=== PATIENT | female | born 1975 | race Caucasian/White ===

== ENCOUNTER 2017-11-07 22:55 | Emergency (ER) | payer MEDICARE, OTHER ==
[2017-11-07 23:32] LABS: Appearance,Urine Clear (Clear); Bilirubin,Urine Negative (Negative); Blood,Urine Negative (Negative); Color,Urine Light Yellow; Glucose,Urine (UA) Negative (Negative); Ketones,Urine Negative (Negative); Leukocyte Esterase,Urine Negative (Negative); Nitrite,Urine Negative (Negative); PH, Urine 5.5 (5.0-8.0); Protein,Urine Negative (Negative); Specific Gravity,Urine 1.026 (1.001-1.035); Urobilinogen,Urine <2.0 mg/dL (<2.0)
[2017-11-07 23:34] LABS: Basophils % (A) 0 %; Eosinophils # (A) 0.1 k/uL (0-0.7); Eosinophils % (A) 1 %; HGB 13.3 gm/dL (11.4-16.0); Lymphocytes # (A) 1.6 k/uL (1.0-4.8); Lymphocytes % (A) 17 %; MCH 27.6 pg (25.0-35.0); MCV 78.8 fL (80.0-100.0); Mean Platelet Volume 7.2; Monocytes # (A) 0.4 k/uL (0-1.0); Monocytes % (A) 5 %; Neutrophils # (A) 6.9 k/uL (1.3-7.7); Neutrophils % (A) 76 %; Platelet Count 265 k/uL (150-450); RBC 4.83 m/uL (3.80-5.40); RDW 14.4 % (11.5-15.5); WBC 9.1 k/uL (3.8-10.6)
[2017-11-07 23:42] LABS: Amphetamine Screen,Urine Not Detected (NotDetected); Barbiturate Screen,Urine Not Detected (NotDetected); Benzodiazepines Screen,Urine Not Detected (NotDetected); Cocaine Screen,Urine Not Detected (NotDetected); Methadone Screen, Urine Not Detected (NotDetected); Opiate Screen,Urine Not Detected (NotDetected); Oxycodone Screen, Urine Not Detected (NotDetected); Phencyclidine Screen,Urine Not Detected (NotDetected); Tricyclic Antidepressant,Urine Not Detected (NotDetected); Urn Cannabinoid Scrn Not Detected (NotDetected)
[2017-11-07 23:44] LABS: Anion Gap 11 mmol/L; Blood Urea Nitrogen 4 mg/dL (7-17); Calcium 9.4 mg/dL (8.4-10.2); Carbon Dioxide 28 mmol/L (22-30); Chloride 101 mmol/L (98-107); Glucose 108 mg/dL (74-99); Potassium 3.8 mmol/L (3.5-5.1); Sodium 140 mmol/L (137-145)
--- NOTE | 2017-11-08 00:10 | ED ---
General Adult HPI - General Source: patient, EMS Mode of arrival: EMS Limitations: no limitations - History of Present Illness -: unknown Location: abdomen Radiation: non-radiation Consistency: constant Improves with: none Worsens with: none Associated Symptoms: denies other symptoms <Finn Bustamante - Last Filed: 11/08/17 00:07> <Dhaval Carvalho - Last Filed: 11/08/17 02:35> - General Chief complaint: Anxiety Stated complaint: Altered Mental Status Time Seen by Provider: 11/07/17 23:02 - History of Present Illness Initial comments: This patient is a 42-year-old woman who reportedly has history of schizophrenia , and presents in the company of her sisters. The patient reports that she is having a little bit of lower abdominal pain. The patient sisters however state that she is here because she has been having some suicidal ideation. In relation to the abdominal pain complaint, the patient is not able to characterize it well. She indicates the lower abdomen. She states that the pain has been there "a long time" but is not able to state whether it is been weeks or months. She is not able to give a good description of the pain. She has not discovered any worsening or relieving factors. She is not able to relate any accompanying symptoms, denying changes in urination or bowel movement. (Finn Bustamante) - Related Data Home Medications Medication Instructions Recorded Confirmed ARIPiprazole [Abilify] 20 mg PO DAILY 06/09/15 06/09/15 Albuterol Inhaler [Ventolin 1 - 2 puff INHALATION Q6HR PRN 06/09/15 06/09/15 Inhaler] Doxepin HCl [SINEquan] 75 mg PO HS 06/09/15 06/09/15 Lisinopril [Prinivil] 10 mg PO DAILY 06/09/15 06/09/15 Meclizine [Antivert] 25 mg PO QID 06/09/15 06/09/15 Metoprolol Tartrate 25 mg PO HS 06/09/15 06/09/15 lamoTRIgine [lamoTRIgine ER] 25 mg PO DAILY 06/09/15 06/09/15 Previous Rx's Medication Instructions Recorded ALPRAZolam [Xanax] 0.5 mg PO HS PRN #5 tab 06/09/15 Allergies Allergy/AdvReac Type Severity Reaction Status Date / Time ziprasidone HCl [From Geodon] Allergy Unknown Verified 11/07/17 22:58 ziprasidone mesylate Allergy Unknown Verified 11/07/17 22:58 [From Geodon] Review of Systems ROS Other: All systems not noted in ROS Statement are negative. Constitutional: Denies: fever, weakness Respiratory: Denies: cough, dyspnea Cardiovascular: Denies: chest pain, palpitations Gastrointestinal: Reports: abdominal pain. Denies: vomiting, diarrhea, constipation Genitourinary: Denies: dysuria, hematuria Musculoskeletal: Denies: back pain Neurological: Denies: headache Psychiatric: Reports: depression, suicidal thoughts. Denies: homicidal thoughts <DiannaFinn - Last Filed: 11/08/17 00:07> ROS Other: All systems not noted in ROS Statement are negative. <Dhaval Carvalho Tera - Last Filed: 11/08/17 02:35> ROS Statement: Those systems with pertinent positive or pertinent negative responses have been documented in the HPI. Past Medical History Past Medical History: Hypertension History of Any Multi-Drug Resistant Organisms: None Reported Additional Past Surgical History / Comment(s): heart surgery/aorta Past Psychological History: Bipolar, Schizophrenia Smoking Status: Current every day smoker Past Alcohol Use History: None Reported Past Drug Use History: None Reported <TysonakankshaFinn - Last Filed: 11/08/17 00:07> General Exam Limitations: no limitations General appearance: alert, in no apparent distress, obese Head exam: Present: atraumatic, normocephalic Eye exam: Present: normal appearance. Absent: scleral icterus, conjunctival injection Respiratory exam: Present: normal lung sounds bilaterally. Absent: respiratory distress, wheezes, rales, rhonchi, stridor Cardiovascular Exam: Present: regular rate, normal rhythm, normal heart sounds. Absent: systolic murmur, diastolic murmur, rubs, gallop GI/Abdominal exam: Present: soft. Absent: distended, tenderness, guarding, rebound, rigid, mass, pulsatile mass, hernia Extremities exam: Present: normal inspection, normal capillary refill. Absent: pedal edema, calf tenderness Back exam: Present: normal inspection. Absent: CVA tenderness (R), CVA tenderness (L) Neurological exam: Present: alert Skin exam: Present: warm, dry, intact, normal color. Absent: rash <DiannaFinn - Last Filed: 11/08/17 00:07> Vital Signs 11/07/17 22:56 Temperature 98.6 F Pulse Rate 85 Respiratory 16 Rate Blood Pressure 146/77 O2 Sat by Pulse 97 Oximetry Medical Decision Making - Lab Data Result diagrams: 11/07/17 23:00 11/07/17 23:00 <Finn Bustamante - Last Filed: 11/08/17 00:07> - Lab Data Result diagrams: 11/07/17 23:00 11/07/17 23:00 <Dhaval Carvalho - Last Filed: 11/08/17 02:35> - Medical Decision Making 42-year-old female presenting for psychiatric evaluation, and lower abdominal pain. She was evaluated prior to sign out, she complained of some lower abdominal pain. CT was obtained as is negative for any acute intra-abdominal pathology. Urine urinalysis and laboratory studies are unremarkable. Patient is medically cleared awaiting EPS evaluation. Patient is evaluated by EPS, she is no longer suicidal. She is eager for discharge. She is cleared by EPS. I did reevaluate the patient after EPS evaluation and she denies suicidal ideation. She is accompanied by her sisters who are agreeable with discharge. (Dhaval Carvalho) - Lab Data Lab Results 11/07/17 11/07/17 11/07/17 Range/Units 23:00 23:00 23:00 WBC 9.1 (3.8-10.6) k/uL RBC 4.83 (3.80-5.40) m/uL Hgb 13.3 (11.4-16.0) gm/dL Hct 38.0 (34.0-46.0) % MCV 78.8 L (80.0-100.0) fL MCH 27.6 (25.0-35.0) pg MCHC 35.0 (31.0-37.0) g/dL RDW 14.4 (11.5-15.5) % Plt Count 265 (150-450) k/uL Neutrophils % 76 % Lymphocytes % 17 % Monocytes % 5 % Eosinophils % 1 % Basophils % 0 % Neutrophils # 6.9 (1.3-7.7) k/uL Lymphocytes # 1.6 (1.0-4.8) k/uL Monocytes # 0.4 (0-1.0) k/uL Eosinophils # 0.1 (0-0.7) k/uL Basophils # 0.0 (0-0.2) k/uL Sodium 140 (137-145) mmol/L Potassium 3.8 (3.5-5.1) mmol/L Chloride 101 (98-107) mmol/L Carbon Dioxide 28 (22-30) mmol/L Anion Gap 11 mmol/L BUN 4 L (7-17) mg/dL Creatinine 0.60 (0.52-1.04) mg/dL Est GFR (CKD-EPI)AfAm >90 (>60 ml/min/1.73 sqM) Est GFR (CKD-EPI)NonAf >90 (>60 ml/min/1.73 sqM) Glucose 108 H (74-99) mg/dL Calcium 9.4 (8.4-10.2) mg/dL Urine Color Light Yellow Urine Appearance Clear (Clear) Urine pH 5.5 (5.0-8.0) Ur Specific [place] 1.026 (1.001-1.035) Urine Protein Negative (Negative) Urine Glucose (UA) Negative (Negative) Urine Ketones Negative (Negative) Urine Blood Negative (Negative) Urine Nitrite Negative (Negative) Urine Bilirubin Negative (Negative) Urine Urobilinogen <2.0 (<2.0) mg/dL Ur Leukocyte Esterase Negative (Negative) Urine HCG, Qual (Not Detectd) Urine Opiates Screen Not Detected (NotDetected) Ur Oxycodone Screen Not Detected (NotDetected) Urine Methadone Screen Not Detected (NotDetected) Ur Propoxyphene Screen Not Detected (NotDetected) Ur Barbiturates Screen Not Detected (NotDetected) U Tricyclic Antidepress Not Detected (NotDetected) Ur Phencyclidine Scrn Not Detected (NotDetected) Ur Amphetamines Screen Not Detected (NotDetected) U Methamphetamines Scrn Not Detected (NotDetected) U Benzodiazepines Scrn Not Detected (NotDetected) Urine Cocaine Screen Not Detected (NotDetected) U Marijuana (THC) Screen Not Detected (NotDetected) 11/07/17 Range/Units 23:00 WBC (3.8-10.6) k/uL RBC (3.80-5.40) m/uL Hgb (11.4-16.0) gm/dL Hct (34.0-46.0) % MCV (80.0-100.0) fL MCH (25.0-35.0) pg MCHC (31.0-37.0) g/dL RDW (11.5-15.5) % Plt Count (150-450) k/uL Neutrophils % % Lymphocytes % % Monocytes % % Eosinophils % % Basophils % % Neutrophils # (1.3-7.7) k/uL Lymphocytes # (1.0-4.8) k/uL Monocytes # (0-1.0) k/uL Eosinophils # (0-0.7) k/uL Basophils # (0-0.2) k/uL Sodium (137-145) mmol/L Potassium (3.5-5.1) mmol/L Chloride (98-107) mmol/L Carbon Dioxide (22-30) mmol/L Anion Gap mmol/L BUN (7-17) mg/dL Creatinine (0.52-1.04) mg/dL Est GFR (CKD-EPI)AfAm (>60 ml/min/1.73 sqM) Est GFR (CKD-EPI)NonAf (>60 ml/min/1.73 sqM) Glucose (74-99) mg/dL Calcium (8.4-10.2) mg/dL Urine Color Urine Appearance (Clear) Urine pH (5.0-8.0) Ur Specific [place] (1.001-1.035) Urine Protein (Negative) Urine Glucose (UA) (Negative) Urine Ketones (Negative) Urine Blood (Negative) Urine Nitrite (Negative) Urine Bilirubin (Negative) Urine Urobilinogen (<2.0) mg/dL Ur Leukocyte Esterase (Negative) Urine HCG, Qual Not Detected (Not Detectd) Urine Opiates Screen (NotDetected) Ur Oxycodone Screen (NotDetected) Urine Methadone Screen (NotDetected) Ur Propoxyphene Screen (NotDetected) Ur Barbiturates Screen (NotDetected) U Tricyclic Antidepress (NotDetected) Ur Phencyclidine Scrn (NotDetected) Ur Amphetamines Screen (NotDetected) U Methamphetamines Scrn (NotDetected) U Benzodiazepines Scrn (NotDetected) Urine Cocaine Screen (NotDetected) U Marijuana (THC) Screen (NotDetected) Disposition <Finn Bustamante - Last Filed: 11/08/17 00:07> Is patient prescribed a controlled substance at d/c from ED?: No Time of Disposition: 02:34 <Dhaval Carvalho - Last Filed: 11/08/17 02:35> Clinical Impression: Acute anxiety Disposition: HOME SELF-CARE Condition: Good Instructions: Generalized Anxiety Disorder (ED), Schizophrenia (ED) Referrals: Michaela Butts MD [Primary Care Provider] - 1-2 days
--- NOTE | 2017-11-08 00:59 | CT ---
EXAMINATION TYPE: CT abdomen pelvis wo con DATE OF EXAM: 11/08/2017 COMPARISON: NONE HISTORY: Lower abdominal pain CT DLP: 1066.4 mGycm Automated exposure control for dose reduction was used. TECHNIQUE: Helical acquisition of images was performed from the lung bases through the pelvis. FINDINGS: Lung bases are clear. There is no pleural effusion. Heart size is normal. Liver and spleen appear normal. Bile ducts are not dilated. Gallbladder is somewhat dilated and measu res 4 cm. There is no evidence of pancreatic mass. There is no adrenal mass. Kidneys have normal size and contour. There is no hydronephrosis. There is no retroperitoneal adenopathy. There is no ascites. There is small umbilical hernia that contains fat . I see no intestinal wall thickening. There are no dilated loops. Appendix appears normal. Bladder dis tends smoothly. There is high attenuation in the urinary bladder consistent with IV contrast. The johan rce of the contrast is not clear. I see no pelvic mass. There are some facet arthropathy changes in the lumbar spine with spinal stenos is at L4-5. There is similar change at L3-4. There is intermediate density material in the right and left renal pelvis that could be IV contrast. I see no history of recent IV contrast [facility]. Uterus is anteverted. IMPRESSION: CONTRAST IN THE URINARY TRACT. NO EVIDENCE OF RENAL OBSTRUCTION. NO EVIDENCE OF RENAL CALCULUS. LARGE GALLBLADDER COULD RELATE TO GALLBLADDER DYSFUNCTION. NO DILATED DUCTS. NORMAL APPENDIX. I DO NO T SEE A CAUSE FOR LOWER ABDOMINAL PAIN. Spinal stenosis is present at L3-4 L4-5.
[2017-11-08 02:36] VITALS: BP 139/79; PULSE 77; RESP 18; TEMP 98
== END 2017-11-08 02:36 | disposition home or self-care (01) ==
LOC: EC 22:55
DX: F41.9 Anxiety disorder, unspecified (principal); R10.30 Lower abdominal pain, unspecified; I10 Essential (primary) hypertension; F20.9 Schizophrenia, unspecified; F31.9 Bipolar disorder, unspecified; F17.200 Nicotine dependence, unspecified, uncomplicated; Z88.8 Allergy status to other drugs, medicaments and biological substances; Z79.899 Other long term (current) drug therapy
CPT/HCPCS: 36415; 51798; 74176; 80048; 80306; 81003; 81025; 82075; 85025; 99285

== ENCOUNTER 2019-01-04 08:07 | Day surgery (SDC) | payer MEDICARE, OTHER ==
[~2019-01-04 08:07] MED LIST: SODIUM CHLORIDE 0.9% 1,000 ML IV SCH
[2019-01-04 08:43] LABS: Glucose,Whole Blood 110 mg/dL (75-99)
[2019-01-04 09:16] VITALS: BP 133/67; PULSE 63; RESP 20
--- NOTE | 2019-01-04 12:49 | P.PCN ---
Preoperative Diagnosis: Diagnosis Recurrent presyncope Twelve-lead ECG shows sinus rhythm normal ME narrow QRS normal ST segments normal QT interval Tilt table test per protocol Baseline blood pressure 124/76 mmHg Baseline heart rate 60 beats a minute. Patient complained of mild nausea at the start of the study while in supine position line patient was tilted upright at an angle of 70 per protocol there was no significant change in her heart rate and blood pressure. She complained of mild dizziness for the procedure as well as some headache. Rhythm is normal She was laid supine at the end of the procedure. Impression Normal twelve-lead ECG at baseline No evidence for neurocardiogenic syncope or dysautonomia line normal heart rate and blood pressure response to upright tilting
== END 2019-01-04 10:27 | disposition home or self-care (01) ==
LOC: CATHEP 08:07
PROVIDERS: ATTEND Internal Medicine Clinical Cardiac Electrophysiology
DX: R55 Syncope and collapse (principal); E11.9 Type 2 diabetes mellitus without complications; F17.210 Nicotine dependence, cigarettes, uncomplicated; I10 Essential (primary) hypertension; Z79.899 Other long term (current) drug therapy
CPT/HCPCS: 93660

== ENCOUNTER → 2021-02-14 | Outpatient (CLI) | payer MEDICARE, OTHER | END | disposition home or self-care (01) | LOC: LABWHC1 13:15 | PROVIDERS: ATTEND Plastic Surgery | DX: Z01.812 Encounter for preprocedural laboratory examination (principal); Z20.822 Contact with and (suspected) exposure to COVID-19 | CPT/HCPCS: U0003; U0005 ==

== ENCOUNTER → 2024-02-24 | Outpatient (CLI) | payer MEDICARE, OTHER ==
[2024-02-24 10:35] VITALS: BP 122/77; PULSE 84; RESP 17; TEMP 97.9
--- NOTE | 2024-02-24 11:15 | P.GSCN ---
History of Present Illness Consult date: 02/24/24 Requesting physician: Michaela Butts History of present illness: Natalia is a 48-year-old female seen in consultation for Dr. Butts regarding breast disease. She underwent a bilateral mammogram on 08-12-2023. This resulted in a right breast ultrasound. The patient on ultrasound was noted to have a 1.5 cm heterogeneous area of fat necrosis corresponding to an area which had been seen in July 2022. No mammographic evidence of malignancy was noted but extensive fat necrosis bilaterally was identified. She subsequently underwent an ultrasound of the right breast on . This revealed multiple lesions not seen in 2021 they were felt to be cystic and most likely benign but follow-up in 6 months of the right breast ultrasound was recommended. She is complaining of nodules in both breast since June. She had a breast reduction about six years ago and had an infection in the right breast treated with a wound vac. The nodule is in the location of the infection. The left nodule is also near a scar. Radiographically the areas of nodularity appear to correspond to fat necrosis. She is not complaining of any pain or nipple discharge in her breast. She has had a right breast needle biopsy as well as bilateral breast reduction mammoplasty's. The reduction mammoplasty was complicated by a wound infection in the right breast which required a wound VAC for healing. This was approximately 6 years ago. She is feeling frustrated secondary to the multiple tests. She is seen in conjunction with her caregiver. Note from Dr. Butts's office of 11-27-2023 reviewed Caffeine: 544 ounce Cokes per day Nicotine: 2 packs/day hormones: none BCP: none Family History: father: skin cancer, ? melanoma Hormonal History: menarche:17 G0 mneopause: started 42, periods stopped in early 40's Medical history: Left ventricular diastolic dysfunction Type 2 diabetes Hypertension Congenital heart disease COPD Constipation Insomnia Asthma Morbid obesity Low back pain Depressive disorder Anxiety Nicotine dependence Schizoaffective disorder Coarctation of aorta Bipolar Surgical history: Repair of coarctation of the aorta Cholecystectomy Social History: nicotine: 2 PPD/ about 30 years alcohol: none drugs: none Review of Systems - Constitutional Denies fever, Denies weight loss - EENT Eyes: denies blurred vision Ears: deny: decreased hearing, tinnitus Ears, nose, mouth and throat: Denies dysphagia - Breasts bilateral: as per HPI - Cardiovascular Denies chest pain, Denies shortness of breath - Respiratory Respiratory Comment(s): COPD Reports as per HPI - Gastrointestinal Reports diarrhea - Genitourinary Genitourinary: Denies dysuria, Denies hematuria - Musculoskeletal Reports as per HPI, Reports myalgias - Integumentary Denies rash, Denies unusual bruising - Neurological Denies headaches, Denies syncope - Psychiatric Reports as per HPI, Reports anxiety, Reports depression - Endocrine Reports as per HPI - Hematologic/Lymphatic Denies easy bleeding, Denies easy bruising - Allergic/Immunologic Reports as per HPI Past Medical History Past Medical History: Hypertension History of Any Multi-Drug Resistant Organisms: None Reported Additional Past Surgical History / Comment(s): heart surgery/aorta Past Psychological History: Bipolar, Schizophrenia Past Alcohol Use History: None Reported Past Drug Use History: None Reported Medications and Allergies Home Medications Medication Instructions Recorded Confirmed Type Albuterol Inhaler [Ventolin 1 - 2 puff INHALATION Q6HR PRN 06/09/15 02/24/24 History Inhaler] Metoprolol Tartrate 25 mg PO HS 06/09/15 02/24/24 History lisinopriL [Prinivil] 5 mg PO DAILY 06/09/15 02/24/24 History Biotin 1,000 mg PO DAILY 01/04/19 02/24/24 History Cholecalciferol (Vitamin D3) 1 cap PO DAILY 01/04/19 02/24/24 History [Vitamin D3] Ferrous Sulfate [Iron] 325 mg PO BID 01/04/19 02/24/24 History Loratadine 10 mg PO DAILY 01/04/19 02/24/24 History Melatonin 5 mg PO ONCE 01/04/19 02/24/24 History Tolterodine Tartrate [Tolterodine 2 mg PO DAILY 01/04/19 02/24/24 History Tartrate ER] cycloSPORINE [Restasis] 1 drop BOTH EYES DAILY 01/04/19 02/24/24 History Allergies Allergy/AdvReac Type Severity Reaction Status Date / Time ziprasidone HCl [From Geodon] Allergy Unknown Verified 02/24/24 10:16 ziprasidone mesylate Allergy Unknown Verified 02/24/24 10:16 [From Geodon] Surgical - Exam - General moderate distress - Eyes normal ocular movement - ENT no hearing loss - Neck trachea midline - Respiratory normal respiratory effort, clear to auscultation - Cardiovascular Rhythm: regular Heart Sounds: normal: S1, S2 - Abdomen Abdomen: soft, non tender, no guarding, no rigid, no rebound - Integumentary normal turgor - Neurologic no disoriented, no combative - Musculoskeletal normal gait, normal posture - Psychiatric oriented to time, oriented to person, oriented to place, speech is normal, memory intact Breast Exam: BRA: 42C Inspection: Bilateral grade 2 ptosis, multiple scars from prior breast reduction greater on the right than on the left Palpation: Right breast: Multi positional exam fibroglandular tissue changes with a more dominant mass in the periareolar region and region of scar on the right appears to be consistent with firm probable fat necrosis approximately 8 mm in size Right axilla: No adenopathy of concern Left breast: Multi positional exam fibrocystic changes, fibroglandular tissue, probable scar tissue in the lower inner quadrant approximately 8 mm in size probable fat necrosis Left axilla: No adenopathy of concern Results Mammogram and ultrasound results reviewed Assessment and Plan Assessment: Impression: Bilateral fibrocystic breast changes Bilateral probable fat necrosis of the breast Status post bilateral breast reduction Caffeine approximately 5 44 ounce Cokes per day Diabetes Hypertension COPD Nicotine dependence Bipolar Plan: attempt needle biopsy of bilateral breast The patient and her caregiver if the needle biopsy is not successful that the possibility of excision in the operating room of both areas of nodularity in the right and in the left breast. They understand that secondary to the smoking wound healing may be compromised. repeat right breast ultrasound in April and follow up at that time Consent the area of concern in the left breast was prepped using chlorhexidine. A 21-gauge needle on a 10 cc syringe was inserted into the area of concern and multiple passes were made. The specimen was sent to pathology. Following this the area of the right breast was approached. The area of concern was prepped using alcohol. 21-gauge needle on a 10 cc syringe was inserted into the area of concern and multiple passes were made. The specimen was sent to pathology. The patient tolerated the procedure in stable condition. The patient will follow-up in 2 weeks for results She has been counseled against smoking. CC: Dr. Butts
== END ==
LOC: WWCWWP 10:04
PROVIDERS: ATTEND Surgery
DX: R92.8 Other abnormal and inconclusive findings on diagnostic imaging of breast (principal); N64.1 Fat necrosis of breast; N60.12 Diffuse cystic mastopathy of left breast; N60.11 Diffuse cystic mastopathy of right breast; N63.10 Unspecified lump in the right breast, unspecified quadrant; N63.20 Unspecified lump in the left breast, unspecified quadrant; F17.210 Nicotine dependence, cigarettes, uncomplicated; E11.9 Type 2 diabetes mellitus without complications; I11.9 Hypertensive heart disease without heart failure; F31.9 Bipolar disorder, unspecified; J44.89 Other specified chronic obstructive pulmonary disease; F15.90 Other stimulant use, unspecified, uncomplicated; Z98.890 Other specified postprocedural states; Z88.8 Allergy status to other drugs, medicaments and biological substances; Z79.899 Other long term (current) drug therapy

== ENCOUNTER → 2024-03-10 | Outpatient (CLI) | payer MEDICARE, OTHER ==
[2024-03-10 13:04] VITALS: BP 124/80; PULSE 65; RESP 16; TEMP 98.2
--- NOTE | 2024-03-10 13:19 | P.PN ---
Subjective Progress Note Date: 03/10/24 Principal diagnosis: fibrocystic breast/ bilateral breast nodules Natalia is a 48-year-old female seen in consultation for Dr. Butts regarding breast disease. She underwent a bilateral mammogram on 08-12-2023. This resulted in a right breast ultrasound. The patient on ultrasound was noted to have a 1.5 cm heterogeneous area of fat necrosis corresponding to an area which had been seen in July 2022. No mammographic evidence of malignancy was noted but extensive fat necrosis bilaterally was identified. She subsequently underwent an ultrasound of the right breast on . This revealed multiple lesions not seen in 2021 they were felt to be cystic and most likely benign but follow-up in 6 months of the right breast ultrasound was recommended. She is complaining of nodules in both breast since June. She had a breast reduction about six years ago and had an infection in the right breast treated with a wound vac. The nodule is in the location of the infection. The left nodule is also near a scar. Radiographically the areas of nodularity appear to correspond to fat necrosis. She is not complaining of any pain or nipple discharge in her breast. She has had a right breast needle biopsy as well as bilateral breast reduction mammoplasty's. The reduction mammoplasty was complicated by a wound infection in the right breast which required a wound VAC for healing. This was approximately 6 years ago. She is feeling frustrated secondary to the multiple tests. She is seen in conjunction with her caregiver. attempted needle biopsy of both breast done on 02-24-24; bilateral limited specimen with mostly blood Caffeine: 544 ounce Cokes per day Nicotine: 2 packs/day hormones: none BCP: none Family History: father: skin cancer, ? melanoma Hormonal History: menarche:17 G0 mneopause: started 42, periods stopped in early 40's Medical history: Left ventricular diastolic dysfunction Type 2 diabetes Hypertension Congenital heart disease COPD Constipation Insomnia Asthma Morbid obesity Low back pain Depressive disorder Anxiety Nicotine dependence Schizoaffective disorder Coarctation of aorta Bipolar Surgical history: Repair of coarctation of the aorta Cholecystectomy Social History: nicotine: 2 PPD/ about 30 years alcohol: none drugs: none Review of Systems - Constitutional Denies fever, Denies weight loss - EENT Eyes: denies blurred vision Ears: deny: decreased hearing, tinnitus Ears, nose, mouth and throat: Denies dysphagia - Breasts bilateral: as per HPI - Cardiovascular Denies chest pain, Denies shortness of breath - Respiratory Respiratory Comment(s): COPD Reports as per HPI - Gastrointestinal Reports diarrhea - Genitourinary Genitourinary: Denies dysuria, Denies hematuria - Musculoskeletal Reports as per HPI, Reports myalgias - Integumentary Denies rash, Denies unusual bruising - Neurological Denies headaches, Denies syncope - Psychiatric Reports as per HPI, Reports anxiety, Reports depression - Endocrine Reports as per HPI - Hematologic/Lymphatic Denies easy bleeding, Denies easy bruising - Allergic/Immunologic Reports as per HPI Past Medical History Past Medical History: Hypertension History of Any Multi-Drug Resistant Organisms: None Reported Additional Past Surgical History / Comment(s): heart surgery/aorta Past Psychological History: Bipolar, Schizophrenia Past Alcohol Use History: None Reported Past Drug Use History: None Reported Medications and Allergies Home Medications Medication Instructions Recorded Confirmed Type Albuterol Inhaler [Ventolin 1 - 2 puff INHALATION Q6HR PRN 06/09/15 02/24/24 H istory Inhaler] Metoprolol Tartrate 25 mg PO HS 06/09/15 02/24/24 History lisinopriL [Prinivil] 5 mg PO DAILY 06/09/15 02/24/24 History Biotin 1,000 mg PO DAILY 01/04/19 02/24/24 History Cholecalciferol (Vitamin D3) 1 cap PO DAILY 01/04/19 02/24/24 History [Vitamin D3] Ferrous Sulfate [Iron] 325 mg PO BID 01/04/19 02/24/24 History Loratadine 10 mg PO DAILY 01/04/19 02/24/24 History Melatonin 5 mg PO ONCE 01/04/19 02/24/24 History Tolterodine Tartrate [Tolterodine 2 mg PO DAILY 01/04/19 02/24/24 History Tartrate ER] cycloSPORINE [Restasis] 1 drop BOTH EYES DAILY 01/04/19 02/24/24 History Allergies Allergy/AdvReac Type Severity Reaction Status Date / Time ziprasidone HCl [From Geodon] Allergy Unknown Verified 02/24/24 10:16 ziprasidone mesylate Allergy Unknown Verified 02/24/24 10:16 [From Geodon] Objective - Vital Signs Vital signs: Vital Signs Temp 98.2 F 03/10/24 13:00 Pulse 65 03/10/24 13:00 Resp 16 03/10/24 13:00 BP 124/80 03/10/24 13:00 Pulse Ox 96 03/10/24 13:00 FiO2 Intake & Output 03/09/24 03/10/24 03/10/24 18:59 06:59 18:59 Weight 109.769 kg - Constitutional General appearance: Present: cooperative - EENT Eyes: Present: EOMI ENT: Present: hearing grossly normal - Neck Neck: Present: normal ROM - Respiratory Respiratory: bilateral: CTA - Cardiovascular Heart sounds: normal: S1, S2 - Integumentary Integumentary: Present: normal turgor - Musculoskeletal Musculoskeletal: Present: gait normal - Psychiatric Psychiatric: Present: A&O x's 3, appropriate affect, intact judgment & insight - Additional findings Additional findings: Breast Exam: BRA: 42C Inspection: Bilateral grade 2 ptosis, multiple scars from prior breast reduction greater on the right than on the left Palpation: Right breast: Multi positional exam fibroglandular tissue changes with a more dominant mass in the periareolar region and region of scar on the right appears to be consistent with firm probable fat necrosis approximately 8 mm in size Right axilla: No adenopathy of concern Left breast: Multi positional exam fibrocystic changes, fibroglandular tissue, probable scar tissue in the lower inner quadrant approximately 8 mm in size probable fat necrosis Left axilla: No adenopathy of concern Assessment and Plan Assessment: Impression: Bilateral fibrocystic breast changes Bilateral probable fat necrosis of the breast Status post bilateral breast reduction Caffeine approximately 5 44 ounce Cokes per day Diabetes Hypertension COPD Nicotine dependence Bipolar Plan: attempt needle biopsy of bilateral breast/with mostly red blood cells bilateral breast ultrasound in April with appointment at that time I have discussed with the patient and her caregiver that I cannot tell them definitively what this is without resection. It is most likely however fat necrosis. Secondary to the fact that the patient is a heavy smoker she may have difficulty with wound healing. The patient does not want to have any surgical intervention at this time. She is therefore going to be followed conservatively. She understands as does her caregiver that I cannot give her a definitive diagnosis without tissue acquisition. The patient and her caregiver knew if the needle biopsy is not successful that the possibility of excision in the operating room of both areas of nodularity in the right and in the left breast. They understand that secondary to the smoking wound healing may be compromised and have opted for surveillance. She has been counseled against smoking. CC: Dr. Butts
== END ==
LOC: WWCWWP 12:31
PROVIDERS: ATTEND Surgery
DX: N60.11 Diffuse cystic mastopathy of right breast (principal); N60.12 Diffuse cystic mastopathy of left breast; N64.1 Fat necrosis of breast; F17.210 Nicotine dependence, cigarettes, uncomplicated; E11.9 Type 2 diabetes mellitus without complications; I11.9 Hypertensive heart disease without heart failure; F31.9 Bipolar disorder, unspecified; J44.89 Other specified chronic obstructive pulmonary disease; Z79.899 Other long term (current) drug therapy; Z88.8 Allergy status to other drugs, medicaments and biological substances

== ENCOUNTER → 2024-07-11 | Outpatient (CLI) | payer MEDICARE, OTHER ==
--- NOTE | 2024-07-11 10:14 | USB ---
Reason for Exam: Clinical finding. Risk Values: Lisa 5 year model risk: 0.6%. NCI Lifetime model risk: 6.0%. Technique: Method: Whole Breast Handheld. Findings: The whole breast of both breasts, the axilla of both breasts and the retroareolar of both breasts were scanned. Overall Assessment: Benign, BI-RAD 2 Management: Screening Mammogram of both breasts in 1 year. Electronically signed and approved by: Rakan Stephens M.D.
== END | disposition home or self-care (01) ==
LOC: RADUSWWP 09:32
PROVIDERS: ATTEND Surgery
DX: N63.0 Unspecified lump in unspecified breast (principal)